=== PATIENT | male | born 1975 | race Caucasian/White ===

== ENCOUNTER 2022-03-01 13:35 | Emergency (ER) | payer MEDICAID, SELFPAY ==
--- NOTE | ~2022-03-01 | XR_ITS ---
EXAMINATION: XR CHEST CLINICAL INFORMATION: Trauma COMPARISON: None TECHNIQUE: 2 views of the chest were obtained. FINDINGS: Lungs are mildly hypoinflated. Minimal linear opacity of focal scar or atelectasis within the inferior lingula. No airspace disease or pleural effusion. No pneumothorax. Cardiac silhouette has normal size and contour. The pulmonary vascular pattern is normal. There is osteophyte formation at degenerated glenohumeral joints. Mild spondylosis of the visualized thoracolumbar spine. The visualized upper abdomen is unremarkable. XR/XR chest 2V IMPRESSION: No acute cardiopulmonary disease.
--- NOTE | ~2022-03-01 | CT_ITS ---
EXAMINATION: CT HEAD WITHOUT CONTRAST CT CERVICAL SPINE WITHOUT CONTRAST CLINICAL INFORMATION: Reason for Exam trauma COMPARISON: None. TECHNIQUE: Imaging was performed from the skull base to vertex without intravenous administration of contrast. In addition, helical noncontrast CT imaging was acquired through the cervical spine and source images were reviewed along with axial reconstructions and sagittal and coronal MPRs. This CT examination was performed using dose optimization techniques as appropriate, variously including the following: *Automated exposure control. *Adjustment of mA and/or kV according to patient size (this includes techniques or standardized protocols for targeted exams where dose is matched to indication/reason for exam; i.e. extremities or head). *Use of iterative reconstruction technique. Total exam dose-length product 1375 mGy-cm FINDINGS: HEAD: No intracranial mass, hemorrhage, or midline shift is visualized. The ventricles and sulci are unremarkable. Note is however made of asymmetric prominence of the right lateral ventricle, most consistent with normal variation. No extra-axial collections are identified. Mucoperiosteal thickening is present involving bilateral ethmoidal air cells. Small air-fluid level and mucoperiosteal thickening are also present within the left maxillary sinus. CERVICAL SPINE: Multilevel degenerative spondylosis related changes are present at mid to lower cervical spine. Significant facet degenerative arthritic changes are also noted bilaterally at the lower cervical spine with most pronounced changes seen at left C7-T1. Uncovertebral hypertrophic changes are also noted at mid to lower cervical spine. There is no evidence of acute cervical spine fracture. Vertebral bodies remain normal in height, and alignment is anatomic. No prevertebral or paravertebral soft tissue abnormality is identified. Limited assessment of the lung apices is unremarkable. CT/CT cervical spine wo IV con IMPRESSION: 1. No acute intracranial pathology. 2. No CT evidence of acute cervical spine fracture or traumatic subluxation. 3. Incidental note is made of small air-fluid level and mucoperiosteal thickening within the left maxillary sinus, may represent sinusitis versus acute posttraumatic intrasinus hemorrhage.
[2022-03-01 13:43] VITALS: BP 127/79; PULSE 102; RESP 16; TEMP 36.6; O2SAT 98; BMI 27.8
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
[2022-03-01] MEDS: Ibuprofen 800 MG TABLET PO (16:00)
--- NOTE | 2022-03-01 16:10 | PC.NURSE ---
Patient medicated with Motrin PO for 8 out 10 headache . patient aware of plan of care .
--- NOTE | 2022-03-01 16:11 | PC.NURSE ---
patient alert to self and situation appears to be under
--- NOTE | 2022-03-01 16:25 | PC.NURSE ---
Patient a/ox4 . Went over discharge instructions as ordered by provider . patient discharged with police custody . no questions at this time .
== END 2022-03-01 16:27 | disposition home or self-care (01) ==
PROVIDERS: Emergency Provider Emergency Medicine; PCP Family Medicine
DX: S09.93XA Unspecified injury of face, initial encounter (principal); S13.4XXA Sprain of ligaments of cervical spine, initial encounter; R51.9 Headache, unspecified; M54.2 Cervicalgia; R07.89 Other chest pain; W01.0XXA Fall on same level from slipping, tripping and stumbling without subsequent striking against object, initial encounter; Y93.9 Activity, unspecified; Y92.9 Unspecified place or not applicable; Y99.9 Unspecified external cause status
CPT/HCPCS: 70450; 71046; 72125; 99284